=== PATIENT | male | born 1985 | race Two or more races ===

== ENCOUNTER 2025-02-25 08:55 | Outpatient (CLI) | payer OTHER | END 2025-02-25 09:01 | disposition home or self-care (01) | LOC: SONOGRAMA 08:55 | PROVIDERS: ATTEND Pathology Anatomic Pathology & Clinical Pathology | DX: D17.0 Benign lipomatous neoplasm of skin and subcutaneous tissue of head, face and neck (principal) ==

== ENCOUNTER 2025-03-25 05:40 | Day surgery (SDC) | payer OTHER ==
[2025-03-22 09:30] LABS: BASO % 0.4 % (0.1-1.2); EOS # 0.08 (0.04-0.54); EOS % 1.1 % (0.7-7.0); HEMATOCRIT 42.6 % (40.1-51.0); HEMOGLOBIN 14.1 g/dL (13.7-17.5); LYMPH # 2.65 (1.18-3.74); LYMPH % 37.8 % (19.3-53.1); MEAN CORPUSCULAR HEMOGLOBIN 30.8 pg (25.6-32.2); MONO # 0.66 (0.24-0.82); MONO % 9.4 % (4.7-12.5); NEUT # 3.58 (1.56-6.13); NEUT % 51.2 % (34.0-71.1); PLATELET COUNT 301 K/uL (163-369); RED BLOOD COUNT 4.58 M/uL (4.63-6.08); RED CELL DISTRIBUTION WIDTH 12.9 % (11.6-14.4)
[2025-03-22 09:43] VITALS: BP 125/84
[2025-03-22 09:47] LABS: PROTHROMBIN TIME 10.9 SECONDS (9.0-11.5)
[2025-03-22 09:50] LABS: ALBUMIN 3.8 gm/dL (3.4-5.0); BILIRUBIN TOTAL 0.47 mg/dL (0.3-1.2); CALCIUM 9.5 mg/dL (8.5-10.1); CREATININE SERUM 1.04 mg/dL (0.70-1.30); GFR 78.32; GLOBULINA 3.2 G/DL (2.4-3.5); POTASSIUM 3.97 mEq/L (3.5-5.1)
[2025-03-22 09:53] LABS: PH,URINE 5.5 (5.0-8.0); URINE APPEARANCE Clear; URINE BILIRRUBIN Negative (NEGATIVE); URINE BLOOD Negative; URINE COLOR Yellow; URINE GLUCOSE Negative (NEGATIVE); URINE KETONE Negative (NEGATIVE); URINE LEUKOCYTE Negative; URINE NITRATE Negative; URINE PROTEIN Negative (NEGATIVE); URINE UROBILINOGEN 0.2 E.U./dl
[2025-03-22 09:54] LABS: URINE BACTERIA 25.6 uL (0.0-1933); URINE WBC 2.5 uL (0.0-23.2)
[2025-03-22 09:57] LABS: URINE EPITHELIAL CELLS 0.4 uL (0.0-38.8); URINE RBC 1.3 uL (0.0-20.8)
[~2025-03-25] VITALS: Ht 172.7 cm; Wt 99.8 kg
[2025-03-25] MEDS ORDERED: DEXAMETHASONE SODIUM PHOSPHATE 4 MG/ML VIAL ONE (12:01)
== END 2025-03-25 11:53 | disposition home or self-care (01) ==
LOC: CIR.AMB 05:40
PROVIDERS: ATTEND Surgery
DX: D21.0 Benign neoplasm of connective and other soft tissue of head, face and neck (principal)